=== PATIENT | male | born 1985 | race African-American/Black ===

== ENCOUNTER 2018-04-11 14:16 | Inpatient (IN) | payer SELFPAY ==
[~2018-04-11] VITALS: Ht 172.7 cm; Wt 54.7 kg
--- NOTE | 2018-04-11 14:22 | ER Report ---
History and Physical Time Seen By MD: 14:22 Hx. of Stated Complaint: Pt. seen at [place] ER and diagnosed with a kidney stone on the right side. Given PO pain medication. Pain meds not working. Pain 12/23. 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 Given 2 doses of IV Morphine by EMS in route, did not touch pain. HPI/ROS CHIEF COMPLAINT: Abdominal pain HISTORY OF PRESENT ILLNESS: This is a 33-year-old male who presents to the [facility] department for abdominal pain. Patient has a history of kidney stones, thought he had a kidney stone yesterday was seen in the [place] emergency department, they did no imaging at that time, patient states that he was just given pain medication and sent on his way patient has had little to no relief with the medications that they've given him. Patient is actively rolling around on the gurney, states has been several days since his last bowel movement as well. Patient is holding his right side. Also has right back pain. Intermittent nausea no vomiting. 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 He received a total of 10 mg of IV morphine in route. Patient denies fevers, has intermittent chills. No headaches or chest pain. No shortness of breath. REVIEW OF SYSTEMS: Constitutional: As above. Eyes: No discharge. ENT: No sore throat. Cardiovascular: No chest pain, no palpitations. Respiratory: No cough, no shortness of breath. Gastrointestinal: As above. Genitourinary: No hematuria. Musculoskeletal: As above. Skin: No rashes. Neurological: No headache. Allergies: Coded Allergies: No Known Drug Allergies (Unverified , 04/11/18) Past Medical/Surgical History The patient has a past medical and surgical history of kidney stones, smoking. Reviewed Nurses Notes: Yes Constitutional Vital Sign - Last 24 Hours 04/11/18 04/11/18 04/11/18 04/11/18 14:18 14:18 14:30 14:46 Temp 98.5 Pulse 70 93 Resp 16 B/P (MAP) 102/80 (87) 102/80 119/74 (89) Pulse Ox 96 93 O2 Delivery Room Air 04/11/18 04/11/18 04/11/18 04/11/18 15:16 15:40 15:46 16:00 Pulse 72 71 B/P (MAP) 134/92 (106) 129/84 (99) Pulse Ox 100 96 04/11/18 04/11/18 04/11/18 04/11/18 16:05 16:10 16:15 16:20 Pulse 68 90 69 81 Pulse Ox 96 97 95 96 04/11/18 04/11/18 04/11/18 04/11/18 16:25 16:30 16:35 16:40 Pulse 89 71 92 69 B/P (MAP) 125/77 (93) Pulse Ox 98 96 95 96 04/11/18 04/11/18 04/11/18 04/11/18 16:45 16:50 16:55 17:05 Pulse 85 78 77 Pulse Ox 96 95 93 96 Physical Exam General Appearance: The patient is alert, has no immediate need for airway protection and no signs of toxicity, appears anxious. Eyes: Pupils equal and round no pallor or injection. ENT, Mouth: Mucous membranes are moist. Respiratory: There are no retractions, lungs are clear to auscultation. Cardiovascular: Regular rate and rhythm. Gastrointestinal: Abdomen is soft, tenderness to the right upper and lower quadrants, right CVA tenderness, hypoactive bowel sounds, no masses, no abdominal bruits. Skin: Warm and dry, no rashes. Musculoskeletal: Neck is supple non tender. Extremities are nontender, nonswollen and have full range of motion. DIFFERENTIAL DIAGNOSIS: After history and physical exam differential diagnosis was considered for abdominal pain including but not limited to appendicitis, cholecystitis, renal colic, gastritis and urinary tract infection. Medical Decision Making Data Points Result Diagram: 04/11/18 1448 04/11/18 1448 Laboratory Hematology Test 04/11/18 14:48 Red Blood Count 5.22 M/uL (4.00-5.60) Mean Corpuscular Volume 86.6 fL (80.0-96.0) Mean Corpuscular Hemoglobin 29.8 pg (26.0-33.0) Mean Corpuscular Hemoglobin Concent 34.4 g/dL (32.0-36.0) Red Cell Distribution Width 13.0 % (11.5-14.5) Mean Platelet Volume 9.4 fL (7.2-11.1) Neutrophils (%) (Auto) 52.6 % (39.4-72.5) Lymphocytes (%) (Auto) 35.1 % (17.6-49.6) Monocytes (%) (Auto) 9.6 % (4.1-12.4) Eosinophils (%) (Auto) 0.6 % (0.4-6.7) Basophils (%) (Auto) 2.1 % (0.3-1.4) Nucleated RBC Relative Count (auto) 0.0 /100WBC Neutrophils # (Auto) 3.6 K/uL (2.0-7.4) Lymphocytes # (Auto) 2.4 K/uL (1.3-3.6) Monocytes # (Auto) 0.6 K/uL (0.3-1.0) Eosinophils # (Auto) 0.0 K/uL (0.0-0.5) Basophils # (Auto) 0.1 K/uL (0.0-0.1) Nucleated RBC Absolute Count (auto) 0.00 K/uL Sodium Level 138 mmol/L (137-145) Potassium Level 3.3 mmol/L (3.5-5.0) Chloride Level 111 mmol/L (98-107) Carbon Dioxide Level 19 mmol/L (22-30) Blood Urea Nitrogen 6 mg/dl (9-21) Creatinine 0.70 mg/dl (0.66-1.25) Glomerular Filtration Rate Calc > 60.0 Random Glucose 83 mg/dl (75-110) Calcium Level 8.9 mg/dl (8.4-10.2) Total Bilirubin 1.5 mg/dl (0.2-1.3) Aspartate Amino Transf (AST/SGOT) 21 U/L (0-35) Alanine Aminotransferase (ALT/SGPT) 26 U/L (0-56) Alkaline Phosphatase 114 U/L (0-126) Total Protein 7.2 g/dl (6.3-8.2) Albumin 4.3 g/dl (3.5-5.0) Lipase 123 U/L (23-300) Chemistry Test 04/11/18 14:48 White Blood Count 6.8 k/uL (4.5-11.0) Red Blood Count 5.22 M/uL (4.00-5.60) Hemoglobin 15.6 g/dL (14.0-18.0) Hematocrit 45.2 % (42.0-52.0) Mean Corpuscular Volume 86.6 fL (80.0-96.0) Mean Corpuscular Hemoglobin 29.8 pg (26.0-33.0) Mean Corpuscular Hemoglobin Concent 34.4 g/dL (32.0-36.0) Red Cell Distribution Width 13.0 % (11.5-14.5) Platelet Count 233 K/uL (150-450) Mean Platelet Volume 9.4 fL (7.2-11.1) Neutrophils (%) (Auto) 52.6 % (39.4-72.5) Lymphocytes (%) (Auto) 35.1 % (17.6-49.6) Monocytes (%) (Auto) 9.6 % (4.1-12.4) Eosinophils (%) (Auto) 0.6 % (0.4-6.7) Basophils (%) (Auto) 2.1 % (0.3-1.4) Nucleated RBC Relative Count (auto) 0.0 /100WBC Neutrophils # (Auto) 3.6 K/uL (2.0-7.4) Lymphocytes # (Auto) 2.4 K/uL (1.3-3.6) Monocytes # (Auto) 0.6 K/uL (0.3-1.0) Eosinophils # (Auto) 0.0 K/uL (0.0-0.5) Basophils # (Auto) 0.1 K/uL (0.0-0.1) Nucleated RBC Absolute Count (auto) 0.00 K/uL Glomerular Filtration Rate Calc > 60.0 Calcium Level 8.9 mg/dl (8.4-10.2) Total Bilirubin 1.5 mg/dl (0.2-1.3) Aspartate Amino Transf (AST/SGOT) 21 U/L (0-35) Alanine Aminotransferase (ALT/SGPT) 26 U/L (0-56) Alkaline Phosphatase 114 U/L (0-126) Total Protein 7.2 g/dl (6.3-8.2) Albumin 4.3 g/dl (3.5-5.0) Lipase 123 U/L (23-300) EKG/Imaging Imaging Location: [facility] Patient: Genesis Bhatt: 1985 Visit/Account:[id number] Date of Sevice: 04/11/2018 CT ABDOMEN PELVIS W/O CON EXAMINATION: CT abdomen/pelvis without IV contrast Additional Pertinent history: none TECHNIQUE: Spiral scan was obtained through the abdomen/pelvis last pelvis without intravenous contrast. One of the following dose optimization techniques was utilized in the performance of this exam: Automated exposure control; adjustment of the mA and/or kV according to the patient's size; or use of an iterative reconstruction technique. Specific details can be referenced in the facility's radiology CT exam operational policy. COMPARISON STUDIES: None FINDINGS: Please note that without intravenous contrast, sensitivity to detection of parenchymal disease is limited. Liver / biliary: Normal liver. No gallstones. Pancreas: negative Spleen: negative Adrenal glands: negative Kidneys / retroperitoneum: Marked right hydronephrosis with a dilated ureter down to the vesicoureteral junction. At this point there is a 5.5 mm somewhat bilobed stone just proximal to the vesicoureteral junction. No additional stones are seen within either kidney. Left ureter is normal. Bowel / peritoneum / mesenteries: No mass lesion or inflammation within the col on. Appendix is normal. Vessels: negative Musculoskeletal / Body wall: negative Lymph node assessment: negative Lower chest: negative IMPRESSION: 1. High-grade obstruction of the right kidney from a distal right ureteral stone at the vesicoureteral junction measuring approximately 5.5 mm in greatest dimension. Report Dictated By: Gilbert Ramírez MD at 04/11/2018 3:25 PM Report E-Signed By: Gilbert Ramírez MD at 04/11/2018 3:32 PM [id number] ED Course/Re-evaluation Clinical Indication for ER IV: Hydration, IV Access ED Course The patient was admitted to room. A history and physical were obtained. Differential diagnoses were considered. An IV was started. A CBC, CMP were obtained. A 1 L normal saline bolus was given. 4 mg IV Zofran were given. 50 g IV fentanyl, so 0.5 mg IV Dilaudid 2. CBC unremarkable, chemistries showing potassium 3.3, CO2 19, creatinine 0.70, GFR 60.0, total bili 1.5. A CT of the abdomen pelvis showing High-grade obstruction of the right kidney from a distal right ureteral stone at the vesicoureteral junction measuring approximately 5.5 mm in greatest dimension. I reviewed this with the patient, I did tell him that the likelihood of the stone passing is very low. I consulted with Dr. Santos the urologist on-call, he was able to view the images, we discussed the case, he will try to take the patient to surgery tomorrow morning, I also spoke with Dr. Elizabeth stoddard, the hospitalist on-call, he is accepting the patient in the hospitalist services, patient is in agreement with this plan of care, he was admitted to the medical floor. 04/11/2018 4:36:41 pm I did speak with Dr. Santos the urologist licensed occupational therapy assistant, we discussed the case, he did state he would be able to take the patient to surgery tomorrow, I discussed this with the patient he is willing to stay in for an admit, I did speak Dr. Blum, the hospitalist he has accepted the patient into the hospitalist services. Decision to Disposition Date: Apr 11, 2018 Decision to Disposition Time: 16:36 Depart Departure Latest Vital Signs Vital Signs Date Time Temp Pulse Resp B/P (MAP) Pulse Ox O2 Delivery O2 Flow Rate FiO2 04/11/18 17:05 77 96 04/11/18 16:30 125/77 (93) 04/11/18 14:18 98.5 16 Room Air Impression: Primary Impression: Ureteral stone with hydronephrosis Additional Impression: Renal colic Condition: Improved Disposition: Admitted from ER Problem Qualifiers SARI SANTORO-HERRERA Apr 11, 2018 14:22
[2018-04-11] MEDS ORDERED: NS(*) 0.9% 1000 ML BAG 1,000 ML IV ONE (14:31)
[2018-04-11] MEDS ORDERED: fentaNYL CITR 100 MCG/2 ML AMP IVP ONE (14:35)
[2018-04-11] MEDS ORDERED: ONDANSETRON 4 MG/2 ML VIAL IVP ONE (14:35)
[2018-04-11 15:05] LABS: PLATELET COUNT, AUTOMATED 233 K/uL (150-450)
[2018-04-11] MEDS ORDERED: HYDROMORPHONE HCL 1 MG/ML SYRINGE IVP ONE ×2 (15:15→16:30)
[2018-04-11] MEDS ORDERED: KETOROLAC 30 MG/ML VIAL IVP ONE (15:25)
--- NOTE | 2018-04-11 15:35 | RADIOLOGY IMAGING REPORT ---
FACILITY: [facility] [place] PATIENT NAME: Genesis Bhatt : 1985 MR: [id number] V: [id number] EXAM DATE: ORDERING PHYSICIAN: SARI SANTORO TECHNOLOGIST: Location: [facility] [place] Patient: Genesis Bhatt : 1985 Visit/Account:[id number] Date of Sevice: 04/11/2018 CT ABDOMEN PELVIS W/O CON EXAMINATION: CT abdomen/pelvis without IV contrast Additional Pertinent history: none TECHNIQUE: Spiral scan was obtained through the abdomen/pelvis last pelvis without intravenous cont rast. One of the following dose optimization techniques was utilized in the performance of this exam: Autom ated exposure control; adjustment of the mA and/or kV according to the patient's size; or use of an i terative reconstruction technique. Specific details can be referenced in the facility's radiology C T exam operational policy. COMPARISON STUDIES: None FINDINGS: Please note that without intravenous contrast, sensitivity to detection of parenchymal disease is mota ited. Liver / biliary: Normal liver. No gallstones. Pancreas: negative Spleen: negative Adrenal glands: negative Kidneys / retroperitoneum: Marked right hydronephrosis with a dilated ureter down to the vesicoureter al junction. At this point there is a 5.5 mm somewhat bilobed stone just proximal to the vesicoureter al junction. No additional stones are seen within either kidney. Left ureter is normal. Bowel / peritoneum / mesenteries: No mass lesion or inflammation within the colon. Appendix is normal . Vessels: negative Musculoskeletal / Body wall: negative Lymph node assessment: negative Lower chest: negative IMPRESSION: 1. High-grade obstruction of the right kidney from a distal right ureteral stone at the vesicouretera l junction measuring approximately 5.5 mm in greatest dimension. Report Dictated By: Gilbert Ramírez MD at 04/11/2018 3:25 PM Report E-Signed By: Gilbert Ramírez MD at 04/11/2018 3:32 PM [id number]
[2018-04-11 17:27] VITALS: BP 128/82
[2018-04-11] MEDS ORDERED: HYDROmorphone HCL 2 MG/ML SDV IVP PRN (18:00)
[2018-04-11] MEDS ORDERED: NICOTINE CARTRIDGE 1 EA PO PRN (18:00)
[2018-04-11] MEDS: NICOTINE INH SYSTEM 10 MG/INH INH PRN (18:06)
[2018-04-11] MEDS ORDERED: ONDANSETRON 4 MG/2 ML VIAL IVP PRN (18:30)
[2018-04-11 18:42] VITALS: BP 143/87
[2018-04-11] MEDS ORDERED: LEVOFLOXACIN/D5W*500 MG/100 ML 100 ML IVPB ONE (18:45)
[2018-04-11] MEDS ORDERED: HYDROmorphone HCL 2 MG/ML SDV IVP ONE (19:35)
[2018-04-11] MEDS: NS(*) 0.9% 1000 ML BAG 1,000 ML IV PRN (19:38)
[2018-04-11] MEDS: KETOROLAC 30 MG/ML VIAL IVP SCH (20:45)
[2018-04-11] MEDS ORDERED: MORPHINE 2 MG/ML SYR IVP PRN ×2 (21:35→22:20)
[2018-04-11] MEDS: PROMETHAZINE 25 MG/ML 1 ML AMP IVP PRN (21:57)
[2018-04-11] MEDS ORDERED: INFLUENZA VIRUS VAC 0.5ML SYR IM ONLY ONE (22:10)
[2018-04-11] MEDS ORDERED: FLUSH 10 ML SYR IVP PRN (22:10)
--- NOTE | 2018-04-11 22:18 | History & Physical ---
History of Present Illness Chief Complaint abdominal/flank pain History of Present Illness 33M presented with 2 days increasing pain in flank. Seen [place] ER 2 days ago where he received pain medication but had no imaging. Got minimal relief and was feeling nauseated from pain so called [facility] form [facility] and was brought to [facility]. Here CT shows high grade obstruction of R ureter from stone at ureteropelvic junction with associated hydroureter and hydronephrosis. Admitted for pain management and urologic intervention with Dr Carrera tomorrow. History Problems: (1) Tobacco use Allergies: Coded Allergies: No Known Drug Allergies (Unverified , 04/11/18) Patient History: FH: hypertension FATHER Kidney stones BROTHER OR SISTER Hx Smoking: Yes (2 PPD) Smoking Status: Current: Every Day Smoker Caffeine Intake: Coffee, Tea Caffeine/Cups Per Day: 1-2x/day Hx Alcohol Use: No Hx Substance Use Disorder: No Review of Systems All Systems Reviewed/Normal: Yes, Except as Noted Constitutional: No Fever Gastrointestinal: Nausea Musculoskeletal: Pain Exam Vital Signs Vital Signs Date Time Temp Pulse Resp B/P (MAP) Pulse Ox O2 Delivery O2 Flow Rate FiO2 04/11/18 19:35 96 Room Air 04/11/18 18:42 98.5 66 18 143/87 (105) General Appearance: Alert, Awake, No Acute Distress, Afebrile Neuro: No Gross deficits ENT: Normal Cardiovascular: Normal Rhythm & Peripheral Pulses Respiratory: No Respiratory Distress GI: Abd Soft and Non-Tender Musculoskeletal: No Weakness/Pain Extremities: Soft and Non Tender, Warm, Pulses, Perfused; No Edema Integumentary: Skin Intact without Lesion / Mass Medical Decision Making Data Points Result Diagram: 04/11/18 1448 04/11/18 1448 Assessment and Plan Problems: (1) Ureteral stone with hydronephrosis Status: Acute Assessment & Plan: CT with R obstructing stone, hydronephrosis, hydroureter. No Cr increase. Urology planning intervention tomorrow for lithotripsy. Will make NPO at midnight, pain management with scheduled ketorolac and PRN Dilaudid. (2) Hypokalemia Assessment & Plan: Given PO KCl, recheck in am. Venous Thromboembolism Antithrombotics Is Pt On Any Antithrombotics?: No (early ambulation, may add after surgery) Exam Sepsis Risk: No Definite Risk ADAMS ARIE DORADO DO Apr 11, 2018 22:17
[2018-04-11 22:52] VITALS: BP 145/9
[2018-04-11] MEDS: MORPHINE 2 MG/ML SYR IVP PRN (23:52)
[2018-04-12] VITALS (9 sets, daily range): BP systolic 104–141; BP diastolic 64–104; Ht 172.7 cm; Wt 54.7 kg
[2018-04-12] MEDS: MORPHINE 2 MG/ML SYR IVP PRN ×4 (02:08→09:42)
[2018-04-12] MEDS: KETOROLAC 30 MG/ML VIAL IVP SCH ×3 (02:09→11:39)
[2018-04-12] MEDS: PROMETHAZINE 25 MG/ML 1 ML AMP IVP PRN (02:15)
[2018-04-12] MEDS: NS(*) 0.9% 1000 ML BAG 1,000 ML IV PRN (04:56)
[2018-04-12] MEDS ORDERED: NORMOSOL R SOLN(*) 1000 ML BAG 1,000 ML IV ONE (07:47)
[2018-04-12] MEDS: POTASSIUM CHL 20 MEQ TABCR PO SCH ×3 (08:00→17:37)
[2018-04-12] MEDS ORDERED: FAMOTIDINE 20 MG TAB PO ONE (08:15)
[2018-04-12] MEDS ORDERED: MIDAZOLAM 2 MG/2 ML VIAL IVP PRN (10:15)
[2018-04-12] MEDS ORDERED: PROPOFOL EMUL(*) 10MG/ML 20 ML 20 ML ONE (10:18)
[2018-04-12] MEDS ORDERED: DEXAMETHASONE SOD PHOS 10MG/ML ONE (10:18)
[2018-04-12] MEDS ORDERED: LIDOCAINE MPF 1% 5 ML VIAL ONE (10:18)
[2018-04-12] MEDS ORDERED: ONDANSETRON 4 MG/2 ML VIAL ONE (10:18)
[2018-04-12] MEDS ORDERED: BELLADONNA ALK/OPIUM 60MG SUPP PR ONE (10:33)
--- NOTE | 2018-04-12 11:00 | Hospitalist Progress Note ---
Subjective Progress Notes Subjective He was admitted for kidney stone. He is going to surgery this morning for lithotripsy. He has no complaints. Patient Complains of: Cardiovascular: No: Chest Pain Respiratory: No: Shortness of Breath Physical Exam Vital Signs Date Time Temp Pulse Resp B/P (MAP) Pulse Ox O2 Delivery O2 Flow Rate FiO2 04/12/18 06:52 99.1 65 16 97 Room Air 04/12/18 02:15 104/64 (77) Intake and Output 04/12/18 06:59 Intake Total 3060 ml Balance 3060 ml Intake Oral 960 ml IV Total 2100 ml # Voids 3 General Appearance: Alert, Awake, No Acute Distress, Afebrile Neuro: No Gross deficits Cardiovascular: Regular Rate and Rhythm Respiratory: No Respiratory Distress, Clear to Auscultation GI: Soft and Non-Tender Extremities: Warm, Perfused; No Edema Psych: Alert & Oriented X3, Appropriate Mood & Affect Result Diagram: 04/11/18 1448 04/12/18 0538 Assessment and Plan Problems: (1) Ureteral stone with hydronephrosis Status: Acute Assessment & Plan: CT with R obstructing stone, hydronephrosis, hydroureter. No Cr increase. Urology planning intervention today for lithotripsy. He has been made NPO at midnight, pain management with scheduled ketorolac and PRN Dilaudid. (2) Hypokalemia Assessment & Plan: Given PO KCl upon admission. Potassium now 4.3. Exam Sepsis Risk: No Definite Risk MIGUEL CALDERÓN Apr 12, 2018 11:00
[2018-04-12] MEDS ORDERED: fentaNYL CITR 100 MCG/2 ML AMP ONE ×2 (11:32→12:06)
--- NOTE | 2018-04-12 11:46 | Urology Progress Note ---
Subjective Patient Complains of: Neurological: No: Syncope, Confusion, Weakness, Dizziness, Slurred Speech, Other Cardiovascular: No: Chest Pain, Palpitations, Orthostatic Hypotension, Other Respiratory: No: Cough, Congestion, Shortness of Breath, Wheezing, Other Genitourinary: Other (renal colic has improved since admission) Musculoskeletal: No: Pain, Sprain, Strain, Impaired Mobility, Other Physical Exam Vital Signs Date Time Temp Pulse Resp B/P (MAP) Pulse Ox O2 Delivery O2 Flow Rate FiO2 04/12/18 06:52 99.1 65 16 97 Room Air 04/12/18 02:15 104/64 (77) Intake and Output 04/12/18 06:59 Intake Total 3060 ml Balance 3060 ml Intake Oral 960 ml IV Total 2100 ml # Voids 3 General Appearance: Alert, Awake, No Acute Distress Eyes: PERRLA ENT: Normal Neck: No Masses Cardiovascular: Normal Rhythm & Peripheral Pulses Respiratory: No Respiratory Distress GI: Soft and Non-Tender : Other (mild right CVA tenderness) Musculoskeletal: No Weakness/Pain Extremities: No Soft and Non Tender, No Warm, No Pulses, No Perfused, No Edema, No Other Integumentary: No Skin Intact without Lesion / Mass, No Generalized Fragile Skin, No Scaly / Dry Skin, No Jaundice, No Pallor, No Cyanosis, No Other Result Diagram: 04/11/18 1448 04/12/18 0538 Assessment and Plan Problems: (1) Ureteral stone with hydronephrosis Status: Resolved (2) Renal colic *Optional Permanent Comment*: Patient is status post right ureteroscopic laser lithotripsy with stent placement. I would like him to stay in [place] until when I can see him in the clinic and remove his stent. If his pain is controlled adequately and he has no nausea, urologically he is okay for discharge this afternoon. Last Edited By: Josias Santos MD on Apr 12, 2018 11:45 Status: Resolved Exam Sepsis Risk: No Definite Risk Sepsis Stage: Ruled Out JOSIAS SANTOS MD Apr 12, 2018 11:46
--- NOTE | 2018-04-12 12:30 | OPERATIVE REPORT 1 ---
EVENT DATE: April 12, 2018 SURGEON: Josias Santos MD ANESTHESIOLOGIST: Vikas Diallo MD ANESTHESIA: LMA - General. RECEIVABLE MANAGER: None. PREOPERATIVE DIAGNOSIS Obstructing right distal ureteral calculus. POSTOPERATIVE DIAGNOSIS Obstructing right distal ureteral calculus. PROCEDURE PERFORMED 1. Right ureteroscopic laser lithotripsy. 2. Stone extraction. 3. Stent placement. DESCRIPTION OF PROCEDURE The patient was brought to the operating room and after the adequate induction of general anesthesia, he was placed in the relaxed dorsal lithotomy position. Genitalia were scrubbed, prepped and draped in a sterile fashion and the bladder examined with a rigid cystoscope. I was able to negotiate a glidewire past the obstructing stone in the distal right ureter, all the way to the kidney. I was then able to place the rigid ureteroscope over the wire to gain access to the distal ureter. Here, the stone was easily visualized and using the 365 Micron laser fiber, it was thoroughly fragmented into innumerable small pieces. Some of these were displaced into the bladder. Once the stone was completely fragment, I was able to pass the scope into the dilated more proximal area of the ureter, up to approximately the proximal ureter and no additional stone fragments were visualized. I replaced the wire and positioned a 24 cm 5-Tajik double J stent with pull out string under cystoscopic and fluoroscopic guidance. His bladder was emptied. A B and O suppository was administered. He was aroused from anesthesia and then transported to the PACU in stable condition. STEFAN
--- NOTE | 2018-04-12 13:26 | RADIOLOGY IMAGING REPORT ---
[place] [facility] [place]: Genesis Bhatt : 1985 MR: [id number] V: [id number] EXAM DATE: ORDERING PHYSICIAN: EMMA WILDER TECHNOLOGIST: Location: [facility] Patient: Genesis Bhatt : 1985 Visit/Account:[id number] Date of Sevice: 04/12/2018 Exam type: C-ARM FLUORO 1 HR History: STONE Comparison: CT abdomen and pelvis April 11, 2018 Findings: Five intraoperative fluoroscopic spot views of the abdomen pelvis were submitted. The total fluorosc opy time was. 00:06. The fluoroscopy dose was 2.81 mGray. Images demonstrate placement of a uretera l guidewire followed by a right ureteral stent. On the final images a ovoid calcination projects ove r the proximal pigtail right ureteral stent which may be secondary to the distal right ureteral calcu jorje seen on the recent CT. IMPRESSION: 1. As above Report Dictated By: Nancy Vickers MD at 04/12/2018 1:16 PM Report E-Signed By: Nancy Vickers MD at 04/12/2018 1:19 PM [id number]
[2018-04-12] MEDS: NICOTINE INH SYSTEM 10 MG/INH INH PRN ×2 (15:51→20:09)
[2018-04-13 02:19] VITALS: BP 123/83
[2018-04-13 07:16] VITALS: BP 136/71
[2018-04-13] MEDS: POTASSIUM CHL 20 MEQ TABCR PO SCH (07:19)
--- NOTE | 2018-04-13 09:34 | Hospitalist Depart ---
Discharge Summary Reason for Hosp/Final Diag: (1) Ureteral stone with hydronephrosis Status: Resolved Hospital Course & Plan: CT with R obstructing stone, hydronephrosis, hydroureter. No Cr increase. Urology performed lithotripsy 04/12. Will defer pain medications and follow up to Urology. (2) Hypokalemia Hospital Course & Plan: Given PO KCl upon admission. Potassium now 4.3. Departure Latest Vital Signs Vital Signs 04/13/18 04/13/18 04/13/18 07:16 07:22 07:26 Temp 97.9 Pulse 66 Resp 16 B/P (MAP) 136/71 (92) Pulse Ox 92 O2 Delivery Room Air Weight (Pounds): 120 Weight (Ounces): 8.0 Result Diagram: 04/11/18 1448 04/12/18 0538 Condition: Improved Discharge: Home, Self Care Discharge Instructions Home Meds No Active Prescriptions or Reported Meds Diet: Regular Activity: As Tolerated Copies to: EMMA WILDER MD ; Venous Thromboembolism Antithrombotics Is Pt On Any Antithrombotics?: No (early ambulation, may add after surgery) MIGUEL CALDERÓN [employer]WMI[employer] WORKER Apr 13, 2018 09:34
[2018-04-13] MEDS ORDERED: PER PO (10:04)
--- NOTE | 2018-04-13 10:34 | Urology Progress Note ---
Subjective Patient Complains of: Neurological: No: Syncope, Confusion, Weakness, Dizziness, Slurred Speech, Other Cardiovascular: No: Chest Pain, Palpitations, Orthostatic Hypotension, Other Respiratory: No: Cough, Congestion, Shortness of Breath, Wheezing, Other Gastrointestinal: No Nausea, No Vomiting, No Flatus, No Bowel Movement, No Other Genitourinary: Hematuria Musculoskeletal: No: Pain, Sprain, Strain, Impaired Mobility, Other Physical Exam Vital Signs Date Time Temp Pulse Resp B/P (MAP) Pulse Ox O2 Delivery O2 Flow Rate FiO2 04/13/18 07:26 92 04/13/18 07:22 Room Air 04/13/18 07:16 97.9 66 16 136/71 (92) Intake and Output 04/13/18 06:59 Intake Total 1910 ml Output Total 650 ml Balance 1260 ml Intake Oral 910 ml IV Total 1000 ml Output Urine Total 650 ml Emesis 0 ml # Voids 7 # Bowel Movements 1 General Appearance: Alert, Awake, No Acute Distress ENT: Normal Cardiovascular: Normal Rhythm & Peripheral Pulses Respiratory: No Respiratory Distress GI: Soft and Non-Tender : Normal Result Diagram: 04/11/18 1448 04/12/18 0538 Assessment and Plan Problems: (1) Ureteral stone with hydronephrosis Status: Resolved (2) Renal colic *Optional Permanent Comment*: Patient is status post right ureteroscopic laser lithotripsy with stent placement. I would like him to stay in [place] until when I can see him in the clinic and remove his stent. If his pain is controlled adequately and he has no nausea, urologically he is okay for discharge this afternoon. Last Edited By: Josias Santos MD on Apr 12, 2018 11:45 Status: Resolved Condition Patient feels significantly better after his ureteroscopic laser lithotripsy. He has been having gross hematuria and flank pain with voiding, both of which are normal symptoms related to the stent. I cautioned him about the pullout string and told him to be careful that he does not accidentally displaced the stent. The tentative plan is for him to be [facility] to [facility] and then follow-up on in my clinic for stent removal. I gave him a prescription for Percocet to have on hand as needed and a note for work excusing him from work until 04/19/2018 Exam Sepsis Risk: No Definite Risk JOSIAS SANTOS MD Apr 13, 2018 10:34
--- NOTE | 2018-04-13 10:51 | Urology Progress Note ---
Subjective Patient Complains of: Neurological: No: Syncope, Confusion, Weakness, Dizziness, Slurred Speech, Other Cardiovascular: No: Chest Pain, Palpitations, Orthostatic Hypotension, Other Respiratory: No: Cough, Congestion, Shortness of Breath, Wheezing, Other Gastrointestinal: No Nausea, No Vomiting, No Flatus, No Bowel Movement, No Other Genitourinary: Hematuria Musculoskeletal: No: Pain, Sprain, Strain, Impaired Mobility, Other Physical Exam Vital Signs Date Time Temp Pulse Resp B/P (MAP) Pulse Ox O2 Delivery O2 Flow Rate FiO2 04/13/18 07:26 92 04/13/18 07:22 Room Air 04/13/18 07:16 97.9 66 16 136/71 (92) Intake and Output 04/13/18 06:59 Intake Total 1910 ml Output Total 650 ml Balance 1260 ml Intake Oral 910 ml IV Total 1000 ml Output Urine Total 650 ml Emesis 0 ml # Voids 7 # Bowel Movements 1 General Appearance: Alert, Awake ENT: Normal Cardiovascular: Normal Rhythm & Peripheral Pulses Respiratory: No Respiratory Distress GI: Soft and Non-Tender : Normal, No CVA Tenderness Result Diagram: 04/11/18 1448 04/12/18 0538 Assessment and Plan Problems: (1) Ureteral stone with hydronephrosis Status: Resolved (2) Renal colic *Optional Permanent Comment*: Patient is status post right ureteroscopic laser lithotripsy with stent placement. I would like him to stay in [place] until when I can see him in the clinic and remove his stent. If his pain is controlled adequately and he has no nausea, urologically he is okay for discharge this afternoon. Last Edited By: Josias Santos MD on Apr 12, 2018 11:45 Status: Resolved Exam Sepsis Risk: No Definite Risk JOSIAS SANTOS MD Apr 13, 2018 10:50
[2018-04-15] MEDS ORDERED: CIPR-214 PO (10:08)
== END 2018-04-13 11:15 | disposition home or self-care (01) | DRG 661 ==
LOC: ER 14:27 → MED 17:08
PROVIDERS: ADMIT Internal Medicine; ATTEND Internal Medicine
PROC: 0T768DZ Dilation of Right Ureter with Intraluminal Device, Via Natural or Artificial Opening Endoscopic (ICD-10-PCS; principal; 2018-04-12 10:28)
PROC: 0TC68ZZ Extirpation of Matter from Right Ureter, Via Natural or Artificial Opening Endoscopic (ICD-10-PCS; 2018-04-12 10:28)
DX: N13.2 Hydronephrosis with renal and ureteral calculous obstruction (principal); E87.6 Hypokalemia; F17.210 Nicotine dependence, cigarettes, uncomplicated
CPT/HCPCS: 36415; 74176; 76000; 82040; 82247; 82310; 82374; 82435; 82565; 82947; 83690; 84075; 84132; 84155; 84295; 84450; 84460; 84520; 85025; 96361; 96374; 96375; 96376; 99285; C1894; C2617; J1100; J1170; J1885; J1956; J2001; J2250; J2270; J2405; J2550; J2704; J3010; J7030

== ENCOUNTER → 2018-04-11 | Outpatient (CLI) | payer SELFPAY ==
[~2018-04-11] MED LIST: CIPR-214 PO; KET10 PO; ONDA4TAB97 PO; OXYC-865 PO; PER PO
[2018-04-12 10:50] VITALS: BMI 18.2
== END ==
LOC: AMB 13:35
PROVIDERS: ATTEND Nurse Practitioner
DX: R10.31 Right lower quadrant pain (principal); R53.1 Weakness; M54.9 Dorsalgia, unspecified
CPT/HCPCS: A0425; A0427

== ENCOUNTER 2018-04-15 13:16 | Emergency (ER) | payer SELFPAY ==
[2018-04-12 10:50] VITALS: Wt 54.4 kg
[~2018-04-15 13:16] MED LIST changes: -KET10 PO; -ONDA4TAB97 PO; -OXYC-865 PO
--- NOTE | 2018-04-15 13:20 | ER Report ---
History and Physical Time Seen By MD: 13:20 HPI/ROS CHIEF COMPLAINT: Pain HISTORY OF PRESENT ILLNESS: Patient is a 33-year-old male who was seen on April 11 for renal colic and found to have a 5.5 mm high-grade obstructing stone. Because of the size, intractable pain the patient was admitted and seen by our urologist Dr. Wilder, a stent was placed and then after passage of the stone the stent was removed on April 15 which is today. He states he was doing well prior to stent removal and was pain-free. Patient states that after the stent was removed he began experiencing severe right flank pain and developed nausea with vomiting. The pain is currently 10 out of 10 in intensity and quite severe. REVIEW OF SYSTEMS: Constitutional: No fever, no chills. Eyes: No discharge. ENT: No sore throat. Cardiovascular: No chest pain, no palpitations. Respiratory: No cough, no shortness of breath. Gastrointestinal: Right-sided flank pain, nausea, vomiting Genitourinary: No hematuria. Musculoskeletal: No back pain. Skin: No rashes. Neurological: No headache. Allergies: Coded Allergies: No Known Drug Allergies (Unverified , 04/15/18) Home Meds Active Scripts Oxycodone Hcl/Acetaminophen (PERCOCET 5-325 MG TABLET) 1 Each Tablet, 1 EACH PO Q4H for PAIN, #20 TAB 0 Refills Prov:MARQUES WANG MD 04/15/18 Ondansetron Hcl (ZOFRAN) 4 Mg Tablet, 4 MG PO Q8H for Nausea, #15 TAB 0 Refills Prov:MARQUES WANG MD 04/15/18 Ketorolac Tromethamine (KETOROLAC TROMETHAMINE) 10 Mg Tab, 10 MG PO Q6H PRN for PAIN, #20 TAB 0 Refills Prov:MARQUES WANG MD 04/15/18 Discontinued Reported Medications Oxycodone/Acetaminophen (OXYCODONE/ACETAMINOPHEN 5MG/325 MG) 5 Mg/325 Mg Tab, 1- 2 TAB PO Q6H PRN for PAIN 04/13/18 Past Medical/Surgical History The patient has a past medical and surgical history of kidney stones, smoking. Hx Smoking: Yes (1/2 PPD) Smoking Status: Current: Every Day Smoker Hx Substance Use Disorder: No Hx Alcohol Use: No Constitutional Vital Sign - Last 24 Hours 04/15/18 04/15/18 04/15/18 04/15/18 13:16 13:23 13:30 13:33 Temp 98.0 Pulse 62 60 Resp 18 B/P (MAP) 151/90 (110) 141/87 (105) 141/87 Pulse Ox 95 95 O2 Delivery Room Air Room Air 04/15/18 04/15/18 04/15/18 04/15/18 13:46 14:00 14:16 14:21 Pulse 63 68 69 B/P (MAP) 135/92 (106) Pulse Ox 98 95 92 O2 Delivery Room Air Room Air Room Air 04/15/18 14:30 B/P (MAP) 123/80 (94) Physical Exam General Appearance: The patient is alert, has no immediate need for airway protection and no current signs of toxicity. She appears uncomfortable secondary to pain Respiratory: Chest is non tender, lungs are clear to auscultation. Cardiac: regular rate and rhythm Gastrointestinal: Abdomen is soft and non tender, no masses, bowel sounds normal. Right CVA tenderness Musculoskeletal: Neck: Neck is supple and non tender. Extremities have full range of motion and are non tender. Medical Decision Making Data Points Result Diagram: 04/15/18 1340 04/15/18 1340 Laboratory Hematology Test 04/15/18 13:40 Red Blood Count 5.04 M/uL (4.00-5.60) Mean Corpuscular Volume 85.9 fL (80.0-96.0) Mean Corpuscular Hemoglobin 29.7 pg (26.0-33.0) Mean Corpuscular Hemoglobin Concent 34.5 g/dL (32.0-36.0) Red Cell Distribution Width 13.4 % (11.5-14.5) Mean Platelet Volume 9.1 fL (7.2-11.1) Neutrophils (%) (Auto) 58.2 % (39.4-72.5) Lymphocytes (%) (Auto) 29.9 % (17.6-49.6) Monocytes (%) (Auto) 9.7 % (4.1-12.4) Eosinophils (%) (Auto) 1.5 % (0.4-6.7) Basophils (%) (Auto) 0.7 % (0.3-1.4) Nucleated RBC Relative Count (auto) 0.1 /100WBC Neutrophils # (Auto) 4.0 K/uL (2.0-7.4) Lymphocytes # (Auto) 2.0 K/uL (1.3-3.6) Monocytes # (Auto) 0.7 K/uL (0.3-1.0) Eosinophils # (Auto) 0.1 K/uL (0.0-0.5) Basophils # (Auto) 0.0 K/uL (0.0-0.1) Nucleated RBC Absolute Count (auto) 0.00 K/uL Peripheral Blood Smear No Y/N Sodium Level 136 mmol/L (137-145) Potassium Level 3.5 mmol/L (3.5-5.0) Chloride Level 104 mmol/L (98-107) Carbon Dioxide Level 25 mmol/L (22-30) Blood Urea Nitrogen 10 mg/dl (9-21) Creatinine 0.80 mg/dl (0.66-1.25) Glomerular Filtration Rate Calc > 60.0 Random Glucose 94 mg/dl (75-110) Calcium Level 9.1 mg/dl (8.4-10.2) Total Bilirubin 0.9 mg/dl (0.2-1.3) Aspartate Amino Transf (AST/SGOT) 20 U/L (0-35) Alanine Aminotransferase (ALT/SGPT) 29 U/L (0-56) Alkaline Phosphatase 88 U/L (0-126) Total Protein 7.3 g/dl (6.3-8.2) Albumin 4.3 g/dl (3.5-5.0) Chemistry Test 04/15/18 13:40 White Blood Count 6.8 k/uL (4.5-11.0) Red Blood Count 5.04 M/uL (4.00-5.60) Hemoglobin 14.9 g/dL (14.0-18.0) Hematocrit 43.3 % (42.0-52.0) Mean Corpuscular Volume 85.9 fL (80.0-96.0) Mean Corpuscular Hemoglobin 29.7 pg (26.0-33.0) Mean Corpuscular Hemoglobin Concent 34.5 g/dL (32.0-36.0) Red Cell Distribution Width 13.4 % (11.5-14.5) Platelet Count 232 K/uL (150-450) Mean Platelet Volume 9.1 fL (7.2-11.1) Neutrophils (%) (Auto) 58.2 % (39.4-72.5) Lymphocytes (%) (Auto) 29.9 % (17.6-49.6) Monocytes (%) (Auto) 9.7 % (4.1-12.4) Eosinophils (%) (Auto) 1.5 % (0.4-6.7) Basophils (%) (Auto) 0.7 % (0.3-1.4) Nucleated RBC Relative Count (auto) 0.1 /100WBC Neutrophils # (Auto) 4.0 K/uL (2.0-7.4) Lymphocytes # (Auto) 2.0 K/uL (1.3-3.6) Monocytes # (Auto) 0.7 K/uL (0.3-1.0) Eosinophils # (Auto) 0.1 K/uL (0.0-0.5) Basophils # (Auto) 0.0 K/uL (0.0-0.1) Nucleated RBC Absolute Count (auto) 0.00 K/uL Peripheral Blood Smear No Y/N Glomerular Filtration Rate Calc > 60.0 Calcium Level 9.1 mg/dl (8.4-10.2) Total Bilirubin 0.9 mg/dl (0.2-1.3) Aspartate Amino Transf (AST/SGOT) 20 U/L (0-35) Alanine Aminotransferase (ALT/SGPT) 29 U/L (0-56) Alkaline Phosphatase 88 U/L (0-126) Total Protein 7.3 g/dl (6.3-8.2) Albumin 4.3 g/dl (3.5-5.0) EKG/Imaging Imaging FACILITY: [facility] PATIENT NAME: Genesis Bhatt : 1985 MR: [id number] V: [id number] EXAM DATE: ORDERING PHYSICIAN: MARQUES WANG TECHNOLOGIST: Location: [facility] Patient: Genesis Bhatt : 1985 Visit/Account:[id number] Date of Sevice: 04/15/2018 CT abdomen and pelvis without contrast Indication: Flank pain. Post stent removal. History of kidney stones. Comparison: 04/11/2018. Technique: Axial CT images are obtained through the abdomen and pelvis. Reformatted coronal and sagittal images were reviewed. IV contrast was not administered. One of the following dose optimization techniques was utilized in the performance of this exam: automated exposure control; adjustment of the mA and/or kV according to the patient's size; or use of an iterative reconstruction technique. Specific details can be referenced in the facility's radiology CT exam operational policy. Findings: Lower lung zaldivar: Stable pleural-based micronodule in the left lower lobe. As this is less than 6 mm, no further evaluation. The lungs are otherwise clear. Evaluation of the solid organs of the abdomen is limited without IV contrast. Liver: No focal parenchymal abnormality of the liver. Biliary: Gallbladder appears unremarkable as well as the intra and extra hepatic biliary system. Pancreas: Normal appearance. Spleen: Normal appearance. Adrenal glands: Unremarkable. Kidneys / retroperitoneum: Persistent [id number] hydronephrosis of the right kidney and right ureter down to the UVJ. The previously seen distal ureteral stone measuring 5 mm is no longer present. No stones are seen in the right urinary system. No discrete lesions. Left kidney shows no stones, hydronephrosis or discrete lesions. Left ureter is normal. Bowel / peritoneum / mesenteries: The visualized gastrointestinal tract, including the appendix, within normal limits but the stomach is unremarkable. No free air, free fluid, fluid collections or areas of inflammation. Lymph node assessment: No pathologic adenopathy identified. Pelvic structures: The urinary bladder is mainly decompressed. There is no discrete stones or focal normality seen in the urinary bladder. The remaining pelvic structures visualized within normal limits. Vessels: No significant atherosclerotic calcifications seen throughout a nonaneurysmal abdominal aorta and branches. Musculoskeletal / Body wall: No acute or aggressive osseous abnormality. IMPRESSION: 1. Persistent [id number] hydronephrosis of the right kidney and right ureter down to the UVJ. The previously seen 5 mm stone at the distal right ureter is no longer present. No stones are seen in the urinary bladder. This could be secondary to recently passed stone. There is no stone or cause otherwise identified. Report Dictated By: Chris Mota at 04/15/2018 2:14 PM Report E-Signed By: Chris Mota at 04/15/2018 2:22 PM WSN:[id number] ED Course/Re-evaluation ED Course Plan at this time will be to place an IV give IV pain medication and nausea medicine. A CT scan and blood work at this time 04/15/2018 2:18:17 pm patient still having significant abdominal pain and nause a will give IV Toradol, IV Dilaudid and IV Zofran 04/15/2018 2:40:02 pm she feeling improved at this time. CT scan shows no evidence of stone with moderate hydronephrosis is still present and likely is a result of recent stent removal. We will prescribe pain and nausea medicine for patient instructed to follow-up with if symptoms persist. Decision to Disposition Date: Apr 15, 2018 Decision to Disposition Time: 14:46 Depart Departure Latest Vital Signs Vital Signs Date Time Temp Pulse Resp B/P (MAP) Pulse Ox O2 Delivery O2 Flow Rate FiO2 04/15/18 14:30 123/80 (94) 04/15/18 14:21 69 92 Room Air 04/15/18 13:33 98.0 18 Impression: Primary Impression: Renal colic Condition: Improved Disposition: HOME OR SELF-CARE Referrals: EMMA WILDER MD Follow-up if your symptoms worsen or persist New Scripts Oxycodone Hcl/Acetaminophen (PERCOCET 5-325 MG TABLET) 1 Each Tablet 1 EACH PO Q4H for PAIN, #20 TAB 0 Refills Prov: MARQUES WANG MD 04/15/18 Ondansetron Hcl (ZOFRAN) 4 Mg Tablet 4 MG PO Q8H for Nausea, #15 TAB 0 Refills Prov: MARQUES WANG MD 04/15/18 Ketorolac Tromethamine (KETOROLAC TROMETHAMINE) 10 Mg Tab 10 MG PO Q6H PRN for PAIN, #20 TAB 0 Refills Prov: MARQUES WANG MD 04/15/18 Patient Instructions: Renal Colic (GEN) MARQUES WANG MD Apr 15, 2018 13:20
[2018-04-15] MEDS ORDERED: ONDANSETRON 4 MG/2 ML VIAL IVP ONE ×2 (13:35→14:10)
[2018-04-15] MEDS ORDERED: HYDROMORPHONE HCL 1 MG/ML SYRINGE IVP ONE ×2 (13:35→14:10)
[2018-04-15 13:55] LABS: PLATELET COUNT, AUTOMATED 232 K/uL (150-450)
[2018-04-15] MEDS ORDERED: KETOROLAC 15 MG/ML VIAL IVP ONE (14:10)
--- NOTE | 2018-04-15 14:29 | RADIOLOGY IMAGING REPORT ---
FACILITY: [facility] [place] PATIENT NAME: Genesis Bhatt : 1985 MR: [id number] V: [id number] EXAM DATE: ORDERING PHYSICIAN: MARQUES WANG TECHNOLOGIST: [facility] Patient: Genesis Bhatt : 1985 Visit/Account:[id number] Date of Sevice: 04/15/2018 CT abdomen and pelvis without contrast Indication: Flank pain. Post stent removal. History of kidney stones. Comparison: 04/11/2018. Technique: Axial CT images are obtained through the abdomen and pelvis. Reformatted coronal and sagit mary beth images were reviewed. IV contrast was not administered. One of the following dose optimization techniques was utilized in the performance of this exam: auto mated exposure control; adjustment of the mA and/or kV according to the patient's size; or use of an iterative reconstruction technique. Specific details can be referenced in the facility's radiology C T exam operational policy. Findings: Lower lung zaldivar: Stable pleural-based micronodule in the left lower lobe. As this is less than 6 mm , no further evaluation. The lungs are otherwise clear. Evaluation of the solid organs of the abdomen is limited without IV contrast. Liver: No focal parenchymal abnormality of the liver. Biliary: Gallbladder appears unremarkable as well as the intra and extra hepatic biliary system. Pancreas: Normal appearance. Spleen: Normal appearance. Adrenal glands: Unremarkable. Kidneys / retroperitoneum: Persistent lpek-or-bwgpythm hydronephrosis of the right kidney and right u reter down to the UVJ. The previously seen distal ureteral stone measuring 5 mm is no longer present. No stones are seen in the right urinary system. No discrete lesions. Left kidney shows no stones, hy dronephrosis or discrete lesions. Left ureter is normal. Bowel / peritoneum / mesenteries: The visualized gastrointestinal tract, including the appendix, with in normal limits but the stomach is unremarkable. No free air, free fluid, fluid collections or areas of inflammation. Lymph node assessment: No pathologic adenopathy identified. Pelvic structures: The urinary bladder is mainly decompressed. There is no discrete stones or foca l normality seen in the urinary bladder. The remaining pelvic structures visualized within normal mota its. Vessels: No significant atherosclerotic calcifications seen throughout a nonaneurysmal abdominal aort a and branches. Musculoskeletal / Body wall: No acute or aggressive osseous abnormality. IMPRESSION: 1. Persistent [id number]-vgfwjwyt hydronephrosis of the right kidney and right ureter down to the UVJ. T he previously seen 5 mm stone at the distal right ureter is no longer present. No stones are seen in the urinary bladder. This could be secondary to recently passed stone. There is no stone or cause oth erwise identified. Report Dictated By: Chris Mota at 04/15/2018 2:14 PM Report E-Signed By: Chris Mota at 04/15/2018 2:22 PM WSN:[id number]
[2018-04-15 14:30] VITALS: BP 123/80
[2018-04-15] MEDS ORDERED: OXYC-865 PO (14:41)
[2018-04-15] MEDS ORDERED: ONDA4TAB97 PO (14:41)
[2018-04-15] MEDS ORDERED: KET10 PO (14:41)
== END 2018-04-15 14:58 | disposition home or self-care (01) ==
LOC: ER 13:32
DX: N23 Unspecified renal colic (principal); N13.30 Unspecified hydronephrosis
CPT/HCPCS: 74176; 85025; 96374; 96375; 96376; 99284; J1170; J1885; J2405; 82040; 82247; 82310; 82374; 82435; 82565; 82947; 84075; 84132; 84155; 84295; 84450; 84460; 84520